=== PATIENT | female | born 1980 | race Asian ===

== ENCOUNTER 2023-12-12 15:22 | Emergency (ER) | payer OTHER ==
[~2023-12-12] VITALS: Ht 162.6 cm; Wt 48.1 kg
[2023-12-12 15:33] VITALS: BP 104/60; PULSE 79; RESP 18; TEMP 97.5; O2SAT 98
[2023-12-12 16:15] LABS: APPEARANCE,URINE CLEAR (CLEAR); BILIRUBIN,URINE NEGATIVE (NEGATIVE); BLOOD, URINE NEGATIVE (NEGATIVE); COLOR,URINE YELLOW (YELLOW); PROTEIN,URINE NEGATIVE (NEGATIVE); UGLUCOSE NEGATIVE (NEGATIVE)
[2023-12-12 16:16] LABS: LEUKOCYTE ESTERASE ,URINE NEGATIVE (NEGATIVE); NITRITE, URINE NEGATIVE (NEGATIVE); UROBILINOGEN,URINE 0.2 EU/dL (0.2 - 1)
[2023-12-12 17:51] VITALS: BP 104/60; PULSE 79; RESP 18; TEMP 97.5; O2SAT 98
== END 2023-12-12 17:51 | disposition home or self-care (01) ==
LOC: MED 15:22
DX: O03.9 Complete or unspecified spontaneous abortion without complication (principal); Z3A.01 Less than 8 weeks gestation of pregnancy
CPT/HCPCS: 36415; 81003; 81025; 84702; 99283